=== PATIENT | female | born 1990 | race Caucasian/White ===

== ENCOUNTER 2016-10-30 19:03 | Emergency (ER) | payer SELFPAY ==
[2016-10-30 20:38] VITALS: BP 115/70
--- NOTE | 2016-10-30 23:51 | ED ---
Skin Complaint - HPI Summary HPI Summary: Patient presents to the ED with CC of plantar side of the right foot with a sliver x 2 hours. She attempted to dislodge it at home with a razor blade without success. She states a 8/10 pain. The sliver is from a wood piece. Denies numbness, tingling, color or temperature changes in the foot or extremity. No signs of infection. Denies radiation of pain. Has not taken anything for the pain or inflammation. Otherwise healthy. - History of Current Complaint Chief Complaint: EDExtremityLower Time Seen by Provider: 10/30/16 21:00 Stated Complaint: STICK IN LT FOOT Hx Obtained From: Patient Hx Last Menstrual Period: 12/20/14 Onset/Duration: Started Hours Ago Skin Exposure Onset/Duration: Hours Ago Timing: Constant Onset Severity: Moderate Current Severity: Moderate Pain Intensity: 8 Pain Scale Used: 0-10 Numeric Skin Location: Discrete, Foot Character: Swelling, Redness, Raised, Painful Aggravating Symptom(s): Touch Alleviating Symptom(s): Nothing Associated Signs & Symptoms: Negative Related History: Foreign Body - Allergy/Home Medications Allergies/Adverse Reactions: Allergies Allergy/AdvReac Type Severity Reaction Status Date / Time No Known Allergies Allergy Verified 10/30/16 19:12 PMH/Surg Hx/FS Hx/Imm Hx Previously Healthy: Yes - Immunization History Hx Pertussis Vaccination: No Immunizations Up to Date: Unable to Obtain/Confirm Infectious Disease History: No Infectious Disease History: Denies: Traveled Outside the [place] in Last 30 Days - Social History Occupation: Employed Full-time Lives: With Family Alcohol Use: None Hx Substance Use: No Substance Use Type: Reports: None Hx Tobacco Use: Yes Smoking Status (MU): Heavy Every Day Tobacco Smoker Amount Used/How Often: 1 PPD Length of Time of Smoking/Using Tobacco: 12 years Review of Systems Constitutional: Negative Eyes: Negative Cardiovascular: Negative Respiratory: Negative Genitourinary: Negative Positive: no symptoms reported, see HPI Musculoskeletal: Negative Positive: Other Neurological: Negative All Other Systems Reviewed And Are Negative: Yes Physical Exam Triage Information Reviewed: Yes Vital Signs On Initial Exam: Initial Vitals Temp Pulse Resp BP Pulse Ox 98.3 F 66 16 133/78 98 10/30/16 19:10 10/30/16 19:10 10/30/16 19:10 10/30/16 19:10 10/30/16 19:10 Vital Signs Reviewed: Yes Appearance: Positive: Well-Appearing, Well-Nourished Skin: Positive: Warm, Skin Color Reflects Adequate Perfusion, Other - FB in plantar of foot Head/Face: Positive: Normal Head/Face Inspection Eyes: Positive: EOMI, ELHAM, Conjunctiva Clear Neck: Positive: Supple, No Lymphadenopathy Respiratory/Lung Sounds: Positive: Clear to Auscultation, Breath Sounds Present Cardiovascular: Positive: Normal, RRR, Pulses are Symmetrical in both Upper and Lower Extremities Musculoskeletal: Positive: Normal, Strength/ROM Intact Neurological: Positive: Normal, Sensory/Motor Intact, Alert, Oriented to Person Place, Time, Speech Normal Psychiatric: Positive: Normal AVPU Assessment: Alert - right plantar side of foot with FB - erythematous area with slight swelling and tenderness Diagnostics - Vital Signs Vital Signs Temp Pulse Resp BP Pulse Ox 10/30/16 21:47 98.1 F 62 16 115/70 100 10/30/16 20:10 98.1 F 62 16 115/70 100 10/30/16 19:10 98.3 F 66 16 133/78 98 - Laboratory Lab Statement: Any lab studies that have been ordered have been reviewed, and results considered in the medical decision making process. Course/Dx - Course Course Of Treatment: right plantar side of foot with FB - erythematous area with slight swelling and tenderness - lidocaine without epi used for anesthetic. Locally. Used 18 gauage needge and dislodged the superifical particle. Patient tolerated well. No concerns. Gauze wrapped and discharged. Return precautions given. - Differential Diagnoses - Skin Complaint Differential Diagnoses: Abscess, Other - BF, sliver, abrasion, laceration - Diagnoses Provider Diagnoses: Foreign body in foot Discharge - Discharge Plan Condition: Stable Disposition: HOME Patient Education Materials: Soft Tissue Foreign Body (ED) Referrals: Nahum CLARK,Jose Miguel Silvestre [Primary Care Provider] - Additional Instructions: Ibupforen for pain Watch for signs of infection such as redness, warmth, swelling or drainage from the area.
== END 2016-10-30 22:03 | disposition home or self-care (01) ==
LOC: ED 19:03
DX: S90.851A Superficial foreign body, right foot, initial encounter (principal); W45.8XXA Other foreign body or object entering through skin, initial encounter; Y93.9 Activity, unspecified; Y92.9 Unspecified place or not applicable; F17.210 Nicotine dependence, cigarettes, uncomplicated
CPT/HCPCS: 99281